=== PATIENT | male | born 1975 | race Two or more races ===

== ENCOUNTER 2020-11-26 21:17 | Emergency (ER) | payer MEDICAID, OTHER ==
[~2020-11-26] VITALS: Ht 180.3 cm; Wt 68.0 kg
--- NOTE | 2020-11-26 21:35 | NUR ---
PATIENT BIBRA86 WITH [employer] FROM [employer] C/O BIZARRE BEHAVIOR. PATIENT IS A/O X 2-3, RR EVEN AND UNLABORED, NO SOB NOTED. PATIENT CONNECTED TO CARDIAC AND POX MONITOR. WILL CONTINUE TO MONITOR.
[2020-11-26 22:24] LABS: BASOPHILS % (AUTO) 0.9 % (0.0-2.0); HEMATOCRIT 37 % (39-51); LYMPHOCYTES # (AUTO) 1.7 K/uL (0.8-4.8); LYMPHOCYTES % (AUTO) 30.1 % (20.0-44.0); MEAN CORPUSCULAR HGB CONC 33 g/dl (31.0-36.0); MEAN CORPUSCULAR VOLUME 83 fL (80-96); MONOCYTES # (AUTO) 0.5 K/uL (0.1-1.30); MONOCYTES % (AUTO) 8.9 % (2.0-12.0); NEUTROPHILS # (AUTO) 3.2 K/uL (1.8-8.9); NEUTROPHILS % (AUTO) 57.1 % (43.0-81.0); PLATELET COUNT (AUTO) 194 K/uL (150-450); RED BLOOD CELL COUNT(AUTO) 4.41 MIL/uL (4.5-6.0); WHITE BLOOD COUNT (AUTO) 5.7 K/uL (4.3-11.0)
[2020-11-26 22:38] LABS: ALANINE AMINOTRANSFERASE 21 U/L (12-78); ALBUMIN 3.4 g/dL (3.4-5.0); ALCOHOL, BLOOD < 3 mg/dL (0-0); ALKALINE PHOSPHATASE 94 U/L (46-116); ASPARTATE AMINOTRANSFERASE 25 U/L (15-37); BILIRUBIN,DIRECT 0.1 mg/dL (0.0-0.2); BILIRUBIN,TOTAL 0.3 mg/dL (0.2-1.0); CALCIUM, SERUM 8.3 mg/dL (8.5-10.1); CARBON DIOXIDE 26 mmol/L (21-32); CHLORIDE 108 mmol/L (98-107); CREATININE 0.7 mg/dL (0.6-1.3); GLUCOSE 105 mg/dL (74-106); POTASSIUM 3.7 mmol/L (3.5-5.1); SODIUM SERUM 143 mmol/L (136-145); UREA NITROGEN, BLOOD 18 mg/dL (7-18)
[2020-11-26 22:42] LABS: ACETAMINOPHEN 0 ug/ml (10-30)
[2020-11-26] MEDS ORDERED: LORAZEPAM INJ 2 MG/ML VIAL ONE (23:03)
[2020-11-26] MEDS: LORAZEPAM INJ 2 MG/ML VIAL IM ONE (23:06)
[2020-11-26 23:07] LABS: BILIRUBIN,URINE SMALL (NEGATIVE); COLOR,URINE YELLOW (YELLOW); LEUKOCYTE ESTERASE ,URINE Negative (NEGATIVE); NITRITE, URINE Negative (NEGATIVE); PROTEIN,URINE Negative (NEGATIVE); UGLUCOSE Negative (NEGATIVE)
[2020-11-26 23:56] LABS: BACTERIA,URINE None seen /HPF (None Seen); RBC,URINE 51-80 /HPF (0-2); SQUAMOUS EPITHELIAL CELL,UR Few /HPF (None Seen)
[2020-11-26 23:58] LABS: CALCIUM CARBONATE CRYSTALS,UR Few /HPF (None Seen)
[2020-11-27 04:03] VITALS: BP 127/77
--- NOTE | 2020-11-27 04:03 | NUR ---
Patient discharged to home in stable condition. Written and verbal after care instructions given. Patient verbalizes understanding of instruction.
== END 2020-11-27 04:04 | disposition home or self-care (01) ==
LOC: ER 21:17 → EDBD 21:17 → ER 11-27 04:04
DX: R46.1 Bizarre personal appearance (principal)
CPT/HCPCS: 36415; 80048; 80076; 80143; 80307; 80320; 81001; 85025; 96372; 99283; J2060; G0480

== ENCOUNTER 2020-11-27 07:02 | Emergency (ER) | payer MEDICAID ==
[~2020-11-27] VITALS: Ht 180.3 cm; Wt 68.0 kg
--- NOTE | 2020-11-27 07:12 | NUR ---
ASSUME PT CARE. WAS BIBRA FROM THE [employer]RE[place] FOR ACTING BIZZARE. PER REPORT, PT WAS JUST RELEASED EARLIER S/P BEING OBSERVED FOR THE NIGHT. SOME AGITATON NOTED. PT VERBALLY RESPONSIVE AND DENIES SI/HI. ON MONITOR. AWAITING MD OJEDA.
--- NOTE | 2020-11-27 07:13 | NUR ---
DR GIL AT BEDSIDE FOR EVAL.
[2020-11-27] MEDS ORDERED: LORAZEPAM INJ 2 MG/ML VIAL ONE ×2 (07:37→11:44)
[2020-11-27] MEDS: LORAZEPAM INJ 2 MG/ML VIAL IM ONE ×2 (07:41→11:47)
--- NOTE | 2020-11-27 08:21 | NUR ---
THE PATIENT SLEEPING. RESPONSIVE TO VERBAL STIMULI. WILL CONTINUE TO MONITOR THE PATIENT.
--- NOTE | 2020-11-27 11:40 | NUR ---
SS consult requested for drug abuse. SW met with pt. at bedside. However, the pt. is sleeping and not rousable to verbal cues. SW will follow up at a later time.
--- NOTE | 2020-11-27 13:51 | NUR ---
PT SLEEPING, EASILY AROUSABLE. OFFERED MEAL TRAY. ASK IF HE COULD REST A LITTLE MORE. WILL CONTINUE TO MONITOR.
--- NOTE | 2020-11-28 05:34 | NUR ---
PT REFUSE DISCHARGE PAPERS. -S/I ASYMPTOAMTIC V/S STABLE PT AMBULATORY.
[2020-11-28 05:36] VITALS: BP 120/70
== END 2020-11-28 05:36 | disposition home or self-care (01) ==
LOC: ER 07:03
DX: R45.1 Restlessness and agitation (principal); F15.10 Other stimulant abuse, uncomplicated
CPT/HCPCS: 96372 ×2; 99285; J2060 ×2